=== PATIENT | male | born 1980 | race Caucasian/White ===

== ENCOUNTER 2017-06-21 20:25 | Emergency (ER) | payer OTHER ==
[2017-06-22 00:11] LABS: Hematocrit 48.3 % (35.5-45.6); Hemoglobin 15.8 gm/dl (11.8-15.2); Mean Corpuscular HGB Conc 33 % (32-34); Mean Corpuscular Hemoglobin 32 pg (28-32); Mean Corpuscular Volume 98 fl (84-94); Platelet Count 188 K/mm3 (140-440); Red Blood Count 4.91 M/mm3 (3.65-5.03); White Blood Count 12.9 K/mm3 (4.5-11.0)
[2017-06-22] MEDS ORDERED: PROVENTIL IH ONE (00:21)
[2017-06-22] MEDS ORDERED: ATROVENT IH ONE (00:21)
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
[2017-06-22 00:52] LABS: Blood Urea Nitrogen 13 mg/dL (9-20); Carbon Dioxide 21 mmol/L (22-30); Chloride 99.3 mmol/L (98-107); Glucose 146 mg/dL (75-100); Sodium 138 mmol/L (137-145)
[2017-06-22 01:03] LABS: Anion Gap 22 mmol/L
[2017-06-22 01:04] LABS: Potassium 4.2 mmol/L (3.6-5.0)
[2017-06-22 02:16] VITALS: BP 122/58
[2017-06-22 02:24] LABS: Basophils % (Manual) 0 % (0.0-1.8); Blastocytes % (Manual) 0 %; Diff Status Complete; Eosinophils % (Manual) 0 % (0.0-4.3); Platelet Estimate Consistent w Auto; RBC Morphology Normal
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
== END 2017-06-22 02:20 | disposition home or self-care (01) ==
LOC: ED 20:25
DX: J45.901 Unspecified asthma with (acute) exacerbation (principal); F17.200 Nicotine dependence, unspecified, uncomplicated; X08.8XXA Exposure to other specified smoke, fire and flames, initial encounter
CPT/HCPCS: 36415; 71020; 80048; 82375; 85007; 85025; 94640